=== PATIENT | male | born 1965 | race Caucasian/White ===

== ENCOUNTER 2016-07-27 16:23 | Emergency (ER) | payer BC ==
[~2016-07-27] VITALS: Ht 172.7 cm; Wt 77.3 kg
[2016-07-27] MEDS ORDERED: METH2.5 PO (16:41)
[2016-07-27] MEDS ORDERED: CLORTHALIDONE PO (16:41)
[2016-07-27] MEDS ORDERED: FOLI1 PO (16:41)
[2016-07-27] MEDS ORDERED: MONT10TA21 PO (16:41)
[2016-07-27] MEDS ORDERED: CHL25 PO (16:45)
[2016-07-27 16:53] LABS: ADD UA MICROSCOPIC YES; APPEARANCE,URINE CLEAR (CLEAR); GLUCOSE, URINE (UA) NEGATIVE (NEGATIVE); KETONES,URINE NEGATIVE (NEGATIVE); LEUKOCYTE ESTERASE ,URINE NEGATIVE (NEGATIVE); OCCULT BLOOD,URINE NEGATIVE (NEGATIVE); PROTEIN,URINE SEE CONFIRM (NEGATIVE)
[2016-07-27 16:56] LABS: SULFOSALICYLIC ACID,URINE 2+ (Negative)
[2016-07-27 16:57] LABS: SQUAMOUS EPITHELIAL CELL,UR Rare /LPF (None Seen); WBC,URINE 0-2 /HPF (0-5)
[2016-07-27 17:13] LABS: BASOPHILS % (AUTO) 0.4 % (0.0-2.0); EOSINOPHILS % (AUTO) 0.6 % (1.0-6.0); HEMATOCRIT 51.1 % (41-53); HEMOGLOBIN 16.9 g/dL (13.5-17.5); LYMPHOCYTES # (AUTO) 0.6 K/uL (1.0-4.8); LYMPHOCYTES % (AUTO) 5.6 % (22.0-44.0); MEAN CORPUSCULAR HEMOGLOBIN 30.4 pg (26.0-34.0); MEAN CORPUSCULAR HGB CONC 33.1 G/dL (31.0-37.0); MEAN CORPUSCULAR VOLUME 92 fL (80-100); MONOCYTES # (AUTO) 0.5 K/uL (0.1-1.0); MONOCYTES % (AUTO) 4.5 % (2.0-9.0); NEUTROPHILS # (AUTO) 10.1 K/uL (1.8-7.7); PLATELET COUNT (AUTO) 238 K/uL (150-450); RED BLOOD CELL COUNT(AUTO) 5.57 MIL/uL (4.50-5.90); RED CELL DISTRIBUTION WIDTH 14.1 % (11.5-14.5); WHITE BLOOD COUNT (AUTO) 11.4 K/uL (4.5-11.0)
[2016-07-27 17:15] LABS: NEUTROPHILS % (AUTO) 88.9 % (40.0-70.0)
[2016-07-27 17:31] LABS: CALCIUM, TOTAL 8.2 mg/dL (8.8-10.5); CREATININE 1.52 mg/dL (0.60-1.30)
[2016-07-27 17:37] LABS: ALBUMIN 3.9 g/dL (3.4-5.0); BILIRUBIN,TOTAL 0.9 mg/dL (0.1-1.0); TOTAL PROTEIN, SERUM 8.2 g/dL (6.4-8.2)
[2016-07-27 17:43] LABS: RBC MORPHOLOGY COMMENT NORMAL RBC MORPH
[2016-07-27] MEDS ORDERED: BISMUTH SUBSALICYLATE 524 MG/30 ML SUSPENSION UDCUP PO ONE (18:45)
[2016-07-27] MEDS ORDERED: SODIUM CHLORIDE 0.9% 1,000 ML IV ONE (18:45)
[2016-07-27] MEDS ORDERED: POTASSIUM CHLORIDE 10% 40 MEQ/30 ML LIQUID UDCUP PO ONE (18:45)
[2016-07-27] MEDS ORDERED: ONDANSETRON HCL 4 MG/2 ML VIAL IVP ONE (18:45)
[2016-07-27] MEDS ORDERED: ACETAMINOPHEN 500 MG TABLET PO ONE (19:00)
[2016-07-27 19:40] LABS: INFLUENZA TYPE B NEGATIVE FOR TYPE B (NEGATIVE)
[2016-07-27] MEDS ORDERED: POTASSIUM CHL 20 MEQ/0.9% NS 1,000 ML IV ONE (20:15)
[2016-07-27] MEDS ORDERED: OSELTAMIVIR PHOSPHATE 75 MG CAPSULE PO ONE (20:15)
[2016-07-27 21:09] VITALS: BP 119/86
== END 2016-07-27 21:38 | disposition home or self-care (01) ==
LOC: EMS 16:26
DX: R11.2 Nausea with vomiting, unspecified (principal); R19.7 Diarrhea, unspecified; R51 Headache; Z88.5 Allergy status to narcotic agent
CPT/HCPCS: 87804; 96361; 96374; 99284; J2405; J3480; J7030